=== PATIENT | female | born 1950 | race Two or more races ===

== ENCOUNTER 2024-04-09 22:34 | Emergency (ER) | payer OTHER ==
[~2024-04-09] VITALS: Ht 177.8 cm; Wt 104.3 kg
[2024-04-09] MEDS ORDERED: OMEG1CAP23 PO (23:36)
[2024-04-09] MEDS ORDERED: FENO145T21 PO (23:36)
[2024-04-09] MEDS ORDERED: DOCU100C36 PO (23:36)
[2024-04-09] MEDS ORDERED: LUBI24CA5 PO (23:36)
[2024-04-09] MEDS ORDERED: MAGN200T5 PO (23:36)
[2024-04-09] MEDS ORDERED: BISA10SU11 RC (23:36)
[2024-04-09] MEDS ORDERED: DIGO250T PO (23:36)
[2024-04-09] MEDS ORDERED: INSU100V7 SQ (23:36)
[2024-04-09] MEDS ORDERED: FOLI1TAB27 PO (23:36)
[2024-04-09] MEDS ORDERED: CYAN-51 PO (23:36)
[2024-04-09] MEDS ORDERED: CICL6.6S5 TP (23:36)
[2024-04-09] MEDS ORDERED: SITA50TA PO (23:36)
[2024-04-09] MEDS ORDERED: GLIM1TAB PO (23:36)
[2024-04-09] MEDS ORDERED: CHOL10005 PO (23:37)
[2024-04-09] MEDS ORDERED: INSULIN REGULAR (23:37)
[2024-04-09] MEDS ORDERED: POLY250017 PO (23:37)
[2024-04-09] MEDS ORDERED: SENN8.6T19 PO (23:37)
[2024-04-09] MEDS ORDERED: RIFA550T PO (23:37)
[2024-04-09] MEDS ORDERED: ACET-3117 PO (23:37)
[2024-04-09] MEDS ORDERED: METO25TA6 PO (23:37)
[2024-04-09] MEDS ORDERED: METF-442 PO (23:37)
[2024-04-09] MEDS ORDERED: TRAM50TA2 PO (23:37)
[2024-04-09] MEDS ORDERED: RIVA10TA PO (23:37)
[2024-04-09 23:42] LABS: BASOPHILS # (AUTO) 0.1 K/UL (0.0-0.2); BASOPHILS % (AUTO) 0.6 % (0.0-2.0); EOSINOPHILS # (AUTO) 0.2 K/uL (0.0-0.7); EOSINOPHILS % (AUTO) 1.8 % (0.0-7.0); HEMATOCRIT 36.8 % (31.2-41.9); HEMOGLOBIN 12.8 g/dL (10.9-14.3); LYMPHOCYTES % (AUTO) 29.4 % (20.5-51.5); MEAN CORPUSCULAR HEMOGLOBIN 32.1 uug (24.7-32.8); MEAN CORPUSCULAR HGB CONC 35 g/dL (32.3-35.6); MEAN CORPUSCULAR VOLUME 92.1 fL (75.5-95.3); MONOCYTES # (AUTO) 0.6 K/uL (0.1-1.30); MONOCYTES % (AUTO) 6.2 % (0.0-11.0); NEUTROPHILS # (AUTO) 6.2 K/uL (1.8-8.9); PLATELET COUNT (AUTO) 217 K/uL (179-408); RED CELL DISTRIBUTION WIDTH 13.4 % (12.3-17.7); WHITE BLOOD COUNT (AUTO) 10.1 K/uL (3.8-11.8)
[2024-04-09 23:43] LABS: CALCIUM 8.7 mg/dL (8.5-10.1); CARBON DIOXIDE 24 mmol/L (21-32); CHLORIDE 102 mmol/L (98-107); CREATININE 1.1 mg/dL (0.6-1.3); GLUCOSE 107 mg/dL (74-106); POTASSIUM 3.7 mmol/L (3.5-5.1); SODIUM SERUM 137 mmol/L (136-145); UREA NITROGEN, BLOOD 20 mg/dL (7-18)
[2024-04-09 23:52] LABS: ALANINE AMINOTRANSFERASE 36 U/L (14-59); ALBUMIN 3.4 g/dL (3.4-5.0); ALKALINE PHOSPHATASE 61 U/L (50-136); ASPARTATE AMINOTRANSFERASE 14 U/L (15-37); BILIRUBIN,DIRECT 0.2 mg/dL (0.0-0.2); BILIRUBIN,TOTAL 0.5 mg/dL (0.2-1.0)
[2024-04-10 00:12] LABS: LIPASE 18 U/L (16-77)
[2024-04-10] MEDS ORDERED: ONDANSETRON ODT 4 MG TAB.RAPDIS ONE (00:36)
[2024-04-10] MEDS ORDERED: HYDROMORPHONE 2 MG/1 ML DISP.SYRIN ONE (00:36)
[2024-04-10] MEDS: HYDROMORPHONE 1 MG/1 ML DISP.SYRIN IM ONE (00:42)
[2024-04-10] MEDS: ONDANSETRON ODT 4 MG TAB.RAPDIS SL ONE (00:43)
[2024-04-10 02:02] VITALS: O2SAT 93
[2024-04-10 02:31] LABS: *BILIRUBIN,URIN NEGATIVE (NEGATIVE); *BLOOD, URINE NEGATIVE (NEGATIVE); *CLARITY,URINE CLEAR (CLEAR); *COLOR,URINE YELLOW (YELLOW); *KETONES,URINE NEGATIVE (NEGATIVE); *PROTEIN,URINE NEGATIVE (NEGATIVE); LEUKOCYTE ESTERASE ,URINE NEGATIVE (NEGATIVE); NITRITE, URINE NEGATIVE (NEGATIVE); PH,URINE 5.5 (5.0-8.0); UGLUCOSE NEGATIVE (NEGATIVE)
[2024-04-10 03:04] LABS: BACTERIA,URINE FEW /HPF (NONE SEEN); RBC,URINE 0-3 /HPF (0-3); SQUAMOUS EPITHELIAL CELL,UR MODERATE /HPF (NONE SEEN); WBC,URINE 0-3 /HPF (0-3)
== END 2024-04-10 03:53 ==
LOC: ER 22:38
DX: I51.7 Cardiomegaly (principal); J81.1 Chronic pulmonary edema; N18.9 Chronic kidney disease, unspecified; E11.22 Type 2 diabetes mellitus with diabetic chronic kidney disease; J44.9 Chronic obstructive pulmonary disease, unspecified; Z86.718 Personal history of other venous thrombosis and embolism; J96.10 Chronic respiratory failure, unspecified whether with hypoxia or hypercapnia; K21.9 Gastro-esophageal reflux disease without esophagitis; K70.30 Alcoholic cirrhosis of liver without ascites; Z79.01 Long term (current) use of anticoagulants; Z79.84 Long term (current) use of oral hypoglycemic drugs; Z79.899 Other long term (current) drug therapy
CPT/HCPCS: 99285; 72131; 71045; 80076; 80048; 83690; 85025; 85730; 84484 ×2; 36415 ×2; 74176; 93005; 81001; 96372; J1171; A4606; A4663; Q0162

== ENCOUNTER 2025-05-08 12:48 | Inpatient (IN) | payer MEDICARE, OTHER ==
[~2025-05-08] VITALS: Ht 167.6 cm; Wt 90.7 kg
[~2025-05-08 12:48] MED LIST: ACET-3117 PO; BISA10SU11 RC; CHOL10005 PO; CICL6.6S5 TP; CYAN-51 PO; DIGO250T PO; DOCU100C36 PO; FENO145T21 PO; FOLI1TAB27 PO; GLIM1TAB PO; INSU100V7 SQ; INSULIN REGULAR; LUBI24CA5 PO; MAGN200T5 PO; METF-442 PO; METO25TA6 PO; OMEG1CAP23 PO; POLY250017 PO; RIFA550T PO; RIVA10TA PO; SENN8.6T19 PO; SITA50TA PO; TRAM50TA2 PO
[2025-05-08] MEDS ORDERED: LACT10SO58 PO (13:22)
[2025-05-08] MEDS ORDERED: APIX2.5T PO (13:22)
[2025-05-08] MEDS ORDERED: ALOG25TA PO (13:22)
[2025-05-08] MEDS ORDERED: INSU100V28 SQ (13:22)
[2025-05-08] MEDS ORDERED: MELA3CAP2 PO (13:22)
[2025-05-08 13:31] LABS: PLATELET COUNT (AUTO) 170 K/uL (152-348); RED BLOOD CELL COUNT(AUTO) 4.05 MIL/uL (4.06-5.63); RED CELL DISTRIBUTION WIDTH 13.2 % (12.1-16.2); WHITE BLOOD COUNT (AUTO) 6.8 K/uL (3.6-10.2)
[2025-05-08 13:43] LABS: *BILIRUBIN,URIN NEGATIVE (NEGATIVE); *BLOOD, URINE NEGATIVE (NEGATIVE); *CLARITY,URINE CLEAR (CLEAR); *COLOR,URINE YELLOW (YELLOW); *KETONES,URINE NEGATIVE (NEGATIVE); *PROTEIN,URINE NEGATIVE (NEGATIVE); *UROBILINOGEN,URINE 1.0 E.U./dl (NORMAL); LEUKOCYTE ESTERASE ,URINE 1+ (NEGATIVE); NITRITE, URINE NEGATIVE (NEGATIVE)
[2025-05-08 13:47] LABS: UGLUCOSE 3+ (NEGATIVE)
[2025-05-08 13:50] LABS: CREATININE 1.0 mg/dL (0.6-1.3); SODIUM SERUM 137 mmol/L (136-145); UREA NITROGEN, BLOOD 17 mg/dL (7-18)
[2025-05-08 14:22] LABS: ASPARTATE AMINOTRANSFERASE 135 U/L (15-37)
[2025-05-08 14:23] LABS: TOTAL PROTEIN, SERUM 7.0 g/dL (6.4-8.2)
[2025-05-08 15:00] VITALS: BP 115/71
[2025-05-08] MEDS ORDERED: TRAMADOL HCL 50 MG TABLET PO PRN (16:30)
[2025-05-08] MEDS ORDERED: BISACODYL 10 MG SUPP.RECT RC PRN (16:30)
[2025-05-08] MEDS ORDERED: DOCOSAHEXANOIC ACID PO SCH (17:00)
[2025-05-08] MEDS ORDERED: [UNRECOGNIZED DRUG - OTHER] PO SCH (17:00)
[2025-05-08] MEDS ORDERED: EPA PO SCH (17:00)
[2025-05-08] MEDS ORDERED: DEXTROSE 50% 50 ML DISP.SYRIN IV PRN (17:30)
[2025-05-08 17:36] VITALS: BP 123/69; TEMP 98.3; O2SAT 98
[2025-05-08] MEDS ORDERED: ACETAMINOPHEN 325 MG TABLET PO PRN (18:00)
[2025-05-08] MEDS: DOCUSATE SODIUM 100 MG CAPSULE PO SCH (18:36)
[2025-05-08] MEDS: OMEGA-3 FATTY ACIDS/FISH OIL CAPSULE PO SCH (18:36)
[2025-05-08] MEDS: METFORMIN HCL 500 MG TABLET PO SCH (18:36)
[2025-05-08 19:52] VITALS: BP 102/62; TEMP 97.8; O2SAT 96
[2025-05-08] MEDS: MELATONIN 3 MG TABLET PO SCH (20:10)
[2025-05-08] MEDS: SENNOSIDES 1 TABLET PO SCH (20:10)
[2025-05-08] MEDS: MAGNESIUM OXIDE 400 MG TABLET PO SCH (20:10)
[2025-05-08] MEDS: APIXABAN 2.5 MG TABLET PO SCH (20:11)
[2025-05-08] MEDS: BLOOD SUGAR DIAGNOSTIC 1 EACH STRIP VI SCH (20:14)
[2025-05-08] MEDS: INSULIN GLARGINE,HUM 300 UNITS/3 ML CARTRIDGE SQ SCH (20:24)
[2025-05-08] MEDS: INSULIN REGULAR, HUMAN 1000 UNIT/10 ML VIAL SQ PRN (20:34)
[2025-05-08] MEDS: LACTULOSE 20 G/30 ML LIQUID UDC PO SCH (20:35)
[2025-05-08 23:59] VITALS: BP 110/59; TEMP 97.9; O2SAT 95
[2025-05-09 06:23] VITALS: BP 107/50; TEMP 97.9; O2SAT 93
[2025-05-09 06:45] LABS: PLATELET COUNT (AUTO) 170 K/uL (152-348); RED BLOOD CELL COUNT(AUTO) 4.03 MIL/uL (4.06-5.63); RED CELL DISTRIBUTION WIDTH 13.5 % (12.1-16.2); WHITE BLOOD COUNT (AUTO) 6.7 K/uL (3.6-10.2)
[2025-05-09 06:56] LABS: ASPARTATE AMINOTRANSFERASE 133 U/L (15-37); CREATININE 0.9 mg/dL (0.6-1.3); SODIUM SERUM 138 mmol/L (136-145); TOTAL PROTEIN, SERUM 6.9 g/dL (6.4-8.2); UREA NITROGEN, BLOOD 17 mg/dL (7-18)
[2025-05-09 07:06] LABS: IRON, SERUM 117 ug/dL (50-175)
[2025-05-09 07:24] VITALS: BP 122/68; TEMP 98.4; O2SAT 98
[2025-05-09] MEDS: MIRALAX 17 GM POWD.PACK PO SCH (08:50)
[2025-05-09] MEDS: FOLIC ACID 1 MG TABLET PO SCH (08:51)
[2025-05-09] MEDS: LINAGLIPTIN 5 MG TABLET PO SCH (08:51)
[2025-05-09] MEDS: FENOFIBRATE NANOCRYSTALLIZED 145 MG TABLET PO SCH (08:51)
[2025-05-09] MEDS: DIGOXIN 250 MCG TABLET PO SCH (08:51)
[2025-05-09] MEDS: GLIMEPIRIDE 2 MG TABLET PO SCH (08:52)
[2025-05-09] MEDS: CYANOCOBALAMIN 1,000 MCG TABLET PO SCH (08:52)
[2025-05-09] MEDS: RIFAXIMIN 550 MG TABLET PO SCH (08:53)
[2025-05-09] MEDS: CHOLECALCIFEROL 1,000 UNIT TABLET PO SCH (08:53)
[2025-05-09] MEDS ORDERED: Medication Not On Formulary EA (Glimepiride (Amaryl) 2 MG) PO SCH (09:00)
[2025-05-09] MEDS ORDERED: Medication Not On Formulary EA (Polyethylene Glycol 3350 17 GM) PO SCH (09:00)
[2025-05-09 15:15] VITALS: BP 118/56; TEMP 98.1; O2SAT 99
[2025-05-09 20:00] VITALS: BP 105/56; TEMP 97.8; O2SAT 95
[2025-05-10 05:00] VITALS: BP 113/60; TEMP 96.8; O2SAT 96
[2025-05-10 10:54] VITALS: BP 106/58; TEMP 98; O2SAT 96
[2025-05-10 15:22] VITALS: BP 116/55; TEMP 97.5; O2SAT 95
[2025-05-10 19:00] VITALS: BP 110/51; TEMP 98; O2SAT 94
[2025-05-11 04:00] VITALS: BP 105/60; TEMP 97.7; O2SAT 92
[2025-05-11 06:57] LABS: PLATELET COUNT (AUTO) 175 K/uL (152-348); RED BLOOD CELL COUNT(AUTO) 4.07 MIL/uL (4.06-5.63); RED CELL DISTRIBUTION WIDTH 13.5 % (12.1-16.2); WHITE BLOOD COUNT (AUTO) 8.0 K/uL (3.6-10.2)
[2025-05-11 07:07] LABS: ASPARTATE AMINOTRANSFERASE 124 U/L (15-37); CREATININE 1.0 mg/dL (0.6-1.3); SODIUM SERUM 137 mmol/L (136-145); TOTAL PROTEIN, SERUM 6.8 g/dL (6.4-8.2); UREA NITROGEN, BLOOD 18 mg/dL (7-18)
[2025-05-11] MEDS: PROTEIN SUPPLEMENT (PROSTAT) 30 ML LIQUID PO SCH (10:05)
[2025-05-11] MEDS: FUROSEMIDE 20 MG/2 ML VIAL IV ONE (10:05)
[2025-05-11 11:08] VITALS: BP 118/65; TEMP 97.6; O2SAT 94
[2025-05-11] MEDS ORDERED: CEPH500C2 PO (13:30)
[2025-05-11] MEDS ORDERED: PROT30LI PO (13:30)
== END 2025-05-11 15:35 | DRG 689 ==
LOC: ER 12:48 → TELE3 15:46 → MEDSURG3 05-09 08:45
PROVIDERS: ADMIT Internal Medicine; ATTEND Internal Medicine
DX: N39.0 Urinary tract infection, site not specified (principal); J15.69 Pneumonia due to other Gram-negative bacteria; D68.59 Other primary thrombophilia; J44.0 Chronic obstructive pulmonary disease with (acute) lower respiratory infection; I10 Essential (primary) hypertension; J44.9 Chronic obstructive pulmonary disease, unspecified; E11.9 Type 2 diabetes mellitus without complications; E78.5 Hyperlipidemia, unspecified; I48.0 Paroxysmal atrial fibrillation; I25.10 Atherosclerotic heart disease of native coronary artery without angina pectoris; E66.9 Obesity, unspecified; K21.9 Gastro-esophageal reflux disease without esophagitis; E11.65 Type 2 diabetes mellitus with hyperglycemia; Z68.32 Body mass index [BMI] 32.0-32.9, adult; Z86.718 Personal history of other venous thrombosis and embolism; Z79.84 Long term (current) use of oral hypoglycemic drugs; Z74.09 Other reduced mobility; Z79.4 Long term (current) use of insulin; Z79.01 Long term (current) use of anticoagulants; Z79.899 Other long term (current) drug therapy; F41.9 Anxiety disorder, unspecified; F32.A Depression, unspecified; I25.2 Old myocardial infarction; Z98.890 Other specified postprocedural states; K74.60 Unspecified cirrhosis of liver
CPT/HCPCS: 36415; 70450; 71045; 83550; 83605; 83735; 84100; 84443; 84484; 85025; 85730; 86803; 87086; 93307; A4606; A4663; G0378; J0696; J1815; J1938